=== PATIENT | male | born 1995 | race Caucasian/White ===

== ENCOUNTER 2017-09-25 10:00 | Emergency (ER) | payer BC ==
--- NOTE | 2017-09-25 11:54 | RAD ---
HISTORY: Left-sided testicular pain COMPARISONS: None TECHNIQUE: Multiple transverse and longitudinal ultrasound images were obtained of the scrotum, using grayscale, color Doppler, and spectral Doppler imaging. FINDINGS: RIGHT: RIGHT TESTICLE: The right testicle measures 4 x 2 x 2.8 cm. The right testicle is homogeneous in echotexture, without testicular parenchymal mass. Normal arterial and venous waveforms are identified within the right testicle on spectral Doppler imaging. RIGHT EPIDIDYMIS: The right epididymis measures 0.8 cm at the head. RIGHT SCROTUM: There is trace right hydrocele. There is no varicocele. LEFT: LEFT TESTICLE: The left testicle measures 4.1 x 2.4 x 3 cm. The left testicle is homogeneous in echotexture, without testicular parenchymal mass. Normal arterial and venous waveforms are identified within the left testicle on spectral Doppler imaging. LEFT EPIDIDYMIS: The left epididymis measures 0.9 cm at the head. LEFT SCROTUM: There is a trace left varicocele. There is no hydrocele. OTHER: None IMPRESSION: 1. NO TESTICULAR PARENCHYMAL MASS. 2. NO SONOGRAPHIC FEATURES OF TORSION. PLEASE NOTE THAT PARTIAL OR INTERMITTENT TORSION MAY BE SONOGRAPHICALLY NORMAL.
[2017-09-25 12:33] VITALS: BP 124/87
--- NOTE | 2017-10-10 08:59 | UC ---
Cassidy Sue Thomas, scribed for Sophia Fontenot DO on 09/25/17 at 1022 . Complaint Male HPI - HPI Summary HPI Summary: The pt is a 22 y/o M presenting to E c/o left testicle pain that began one day ago. The pain began yesterday when he was lying down after work. The pain is described as throbbing. The pain is constant. The pain radiates to his LLQ. The pt rates the pain 3/10. The pain is aggravated by lying on his stomach. It is alleviated by nothing. The patient has treated the pain with nothing AGENT SPA DESK. Pt additionally c/o a bump to his testicle that he first noticed a few weeks ago that has now resolved. Pt denies testicular swelling and rectal pain. Pt also denies fever, dysuria, hematuria, urinary symptoms, F/S/C, N/V, any other pains. - History of Current Complaint Chief Complaint: UCGU Stated Complaint: TESTICULAR PAIN Time Seen by Provider: 09/25/17 10:14 Hx Obtained From: Patient Onset/Duration: Lasting Days - 1, Still Present Severity Currently: Mild Pain Intensity: 3 Pain Scale Used: 0-10 Numeric Location: Testicle - L Aggravating Factor(s): Other - Lying on stomach Alleviating Factor(s): Nothing Associated Signs And Symptoms: Negative: Fever, Hematuria, Dysuria - Allergies/Home Medications Allergies/Adverse Reactions: Allergies Allergy/AdvReac Type Severity Reaction Status Date / Time Amoxicillin [From Augmentin] AdvReac See Comment Verified 09/25/17 10:08 Clavulanic Acid AdvReac See Comment Verified 09/25/17 10:08 [From Augmentin] Home Medications: Home Medications NK [No Home Medications Reported] 09/25/17 [History Confirmed 09/25/17] PMH/Surg Hx/FS Hx/Imm Hx Previously Healthy: No - NEGATIVE PMHX: HTN Respiratory History: Asthma - Surgical History Surgical History: Yes Surgery Procedure, Year, and Place: tubes in ears - Family History Known Family History: Positive: Cardiac Disease - Social History Alcohol Use: Rare Substance Use Type: None Smoking Status (MU): Current Some Day Smoker Type: Cigars Amount Used/How Often: 1-2 monthly - Immunization History Most Recent Influenza Vaccination: 09/02 Review of Systems Constitutional: Other - NEGATIVE: fever Genitourinary: Other - Left testicular pain (onset yesterday) Is Patient Immunocompromised?: No All Other Systems Reviewed And Are Negative: Yes Physical Exam Triage Information Reviewed: Yes Appearance: Well-Appearing, No Pain Distress, Well-Nourished Vital Signs: Initial Vital Signs Temp 98.5 F 09/25/17 10:05 Pulse 100 09/25/17 10:05 Resp 18 09/25/17 10:05 BP 135/82 09/25/17 10:05 Pulse Ox 100 09/25/17 10:05 Vital Signs Reviewed: Yes Eyes: Positive: Conjunctiva Clear. Negative: Discharge ENT: Positive: Hearing grossly normal. Negative: Muffled voice Neck exam: Normal Neck: Positive: Supple Respiratory: Positive: Lungs clear, Normal breath sounds, No respiratory distress, No accessory muscle use Cardiovascular: Positive: RRR, No Murmur Abdomen Description: Positive: Nontender, Soft Bowel Sounds: Positive: Present Musculoskeletal Exam: Normal Neurological: Positive: Alert, Muscle Tone Normal Psychological: Positive: Age Appropriate Behavior, Other: - Anxious Skin Exam: Normal Skin: Positive: Other - Warm, dry, normal color - Additional Comments Testicular: The left testicle is tender to palpation. There is no swelling, calor or redness. There is no palpable mass or hernia. Penis is grossly normal with no lesion or discharge. Diagnostics - Laboratory Diagnostic Studies Completed/Ordered: US Testicular. Interpreted by radiologist. Impression: 1. NO TESTICULAR PARENCHYMAL MASS. 2. NO SONOGRAPHIC FEATURES OF TORSION. PLEASE NOTE THAT PARTIAL OR INTERMITTENT TORSION. MAY BE SONOGRAPHICALLY NORMAL. ED physician has reviewed this report and agrees. Complaint Male Course/Dx - Course Course Of Treatment: High blood pressure noted. Medications reviewed this visit. The patient has been encouraged to stop smoking. - Differential Dx/Diagnosis Provider Diagnoses: Testicular pain, elevated blood pressure without a diagnosis of hypertension. Discharge - Discharge Plan Condition: Stable Disposition: HOME Patient Education Materials: Testicle Pain (ED) Referrals: No Primary Care Phys,NOPCP [Primary Care Provider] - Fabien Blue MD [Medical Doctor] - (FOLLOW UP IN 1-5 DAYS) Additional Instructions: Your blood pressure was elevated at this visit. That does not mean you have hypertension, it is probably due to your current condition. Please follow up with your primary care provider. FOLLOW-UP CARE: You should establish with a private physician for follow-up care. If you are unable to get a timely appointment, or if you are worsening, call us or return for re-evaluation. An additional resource available to assist in finding the appropriate physician for your health care needs is the [facility]erral Center. You may contact them by calling [phone]. The documentation as recorded by the Cassidy reynoso Thomas accurately reflects the service I personally performed and the decisions made by me, Sophia Fontenot DO.
== END 2017-09-25 13:09 | disposition home or self-care (01) ==
LOC: UCEAST 10:00
DX: N50.812 Left testicular pain (principal); R03.0 Elevated blood-pressure reading, without diagnosis of hypertension; Z88.1 Allergy status to other antibiotic agents; J45.909 Unspecified asthma, uncomplicated; Z72.0 Tobacco use
CPT/HCPCS: 76870; 81003; 87491; 87591; 99212; G0463

== ENCOUNTER 2018-03-11 09:22 | Emergency (ER) | payer BC ==
[2018-03-11 10:05] VITALS: BP 136/80
--- NOTE | 2018-03-11 10:44 | UC ---
General HPI - HPI Summary HPI Summary: 22 y/o male presents to the urgent care requesting HIV base line testing. Pt report he is starting a new relationship and would like to know his HIV status. He did the test 4 years ago and it was negative. Pt deneis fever, fatigue, URI, weakness, recent weight loss, SOB, chest pain, N/C/D or viral syndrome. - History of Current Complaint Chief Complaint: UCSTDScreening Stated Complaint: WANTS HIV TESTING Time Seen by Provider: 03/11/18 10:42 Hx Obtained From: Patient Onset/Duration: Other - Pt has been healthy Current Severity: None Pain Intensity: 0 - Allergy/Home Medications Allergies/Adverse Reactions: Allergies Allergy/AdvReac Type Severity Reaction Status Date / Time amoxicillin [From Augmentin] Allergy See Comment Verified 03/11/18 10:05 clavulanic acid Allergy See Comment Verified 03/11/18 10:05 [From Augmentin] Home Medications: Home Medications Fluticasone DISKUS 100 MCG(NF) [Flovent Diskus 100 MCG(NF)] 1 puff INH BID 03/11 [History Confirmed 03/11/18] PMH/Surg Hx/FS Hx/Imm Hx Previously Healthy: Yes Respiratory History: Asthma - 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 - Surgical History Surgical History: Yes Surgery Procedure, Year, and Place: tubes in ears - Family History Known Family History: Positive: Cardiac Disease, Diabetes - Social History Occupation: Employed Full-time Lives: With Family Alcohol Use: Occasionally Substance Use Type: None Smoking Status (MU): Current Some Day Smoker Type: Cigars Amount Used/How Often: 1-2 monthly - Immunization History Most Recent Influenza Vaccination: 09/02 Vaccination Up to Date: Yes Review of Systems Constitutional: Negative Skin: Negative Eyes: Negative ENT: Negative Respiratory: Negative Cardiovascular: Negative Gastrointestinal: Negative Genitourinary: Negative Motor: Negative Neurovascular: Negative Musculoskeletal: Arthralgia Neurological: Negative Psychological: Negative Is Patient Immunocompromised?: No All Other Systems Reviewed And Are Negative: Yes Physical Exam - Summary Physical Exam Summary: Vital Signs Reviewed: Yes General: well developed, well nourished male sitting in the examining table w/o any apparent distress Eyes: Positive: Conjunctiva Clear - PERRLA, EOMI, fundi grossly normal ENT: Positive: Normal ENT inspection, Hearing grossly normal, Pharynx mild erythema, no exudate, Nose: normal mucosa, TMs normal. Negative: Tonsillar swelling, Tonsillar exudate Neck: Positive: Supple, Nontender, No Lymphadenopathy Respiratory: no orthopnea or dyspnea. Able to speak in full sentences, no retractions or accessory muscle use, no tripod position, stridor, or head bobbing. CTA bilaterally, no wheezing, no rhonchi, no rales, no crackles. Cardiovascular: Positive: RRR, No Murmur, Pulses Normal, Brisk Capillary Refill Abdomen Description: Positive: Nontender, No Organomegaly, Soft. Negative: CVA Tenderness (R), CVA Tenderness (L) Bowel Sounds: Positive: Present Musculoskeletal Exam: Normal Musculoskeletal: Positive: Strength Intact, ROM Intact, No Edema Neurological Exam: Normal Psychological Exam: Normal Skin Exam: Normal Triage Information Reviewed: Yes Vital Signs: Initial Vital Signs Temp 99.0 F 03/11/18 10:01 Pulse 98 03/11/18 10:01 Resp 18 03/11/18 10:01 BP 136/80 03/11/18 10:01 Pulse Ox 97 03/11/18 10:01 Course/Dx - Course Course Of Treatment: 22 y/o male presents to the urgent care requesting HIV base line testing. Pt report he is starting a new relationship and would like to know his HIV status. He did the test 4 years ago and it was negative. Pt deneis fever, fatigue, URI, weakness, recent weight loss, SOB, chest pain, N/C/ D or viral syndrome. Hx obtained. PE:WNL. HIV 1&2 ordered. Samples sent to lab. Pt will be notified of blood results. - Differential Dx - Multi-Symptom Differential Diagnoses: Other - STD's screening, HIV screening, Provider Diagnoses: 1- HIV screening Discharge - Sign-Out/Discharge Documenting (check all that apply): Discharge/Admit/Transfer - D/C home - Discharge Plan Condition: Stable Disposition: HOME Patient Education Materials: HIV Transmission (ED) Referrals: Ridge Hubbard MD [Primary Care Provider] - If Needed Additional Instructions: 1- HIV 1&2 testing was sent to the lab. You will be notified of the results. 2- In case if any abnormality please f/u w/ your PCP for further management - Billing Disposition and Condition Condition: STABLE Disposition: HOME
== END 2018-03-11 11:10 | disposition home or self-care (01) ==
LOC: UCEAST 09:22
DX: Z11.4 Encounter for screening for human immunodeficiency virus [HIV] (principal); J45.990 Exercise induced bronchospasm; Z88.1 Allergy status to other antibiotic agents; Z88.0 Allergy status to penicillin; Z72.0 Tobacco use
CPT/HCPCS: 36415; 86703; 99211; G0463

== ENCOUNTER 2018-11-18 08:08 | Emergency (ER) | payer BC ==
[2018-11-18 08:23] VITALS: BP 153/74
--- NOTE | 2018-11-18 09:14 | UC ---
Complaint Male HPI - HPI Summary HPI Summary: About one week of left flank pain that radiates to his left groin. States he has some intermittent testicular discomfort but is somewhat unclear about this. Denies any trauma. No urinary symptoms. No fever. No nausea. No history of kidney stones. - History of Current Complaint Chief Complaint: UCBackPain Stated Complaint: LOWER BACK PAIN Time Seen by Provider: 11/18/18 08:46 Hx Obtained From: Patient Onset/Duration: Gradual Onset, Lasting Days, Still Present Timing: Intermittent Severity Initially: Moderate Severity Currently: Moderate Pain Intensity: 2 Pain Scale Used: 0-10 Numeric Location: Flank - LEFT Radiates to: LEFT GROIN Character: Sharp Aggravating Factor(s): Other - MOVEMENT Associated Signs And Symptoms: Positive: Back Pain. Negative: Fever, Hematuria , Dysuria, Constipation, Blood in Stool, Nausea, Penile Swelling, Penile Discharge - Allergies/Home Medications Allergies/Adverse Reactions: Allergies Allergy/AdvReac Type Severity Reaction Status Date / Time amoxicillin [From Augmentin] Allergy See Comment Verified 03/11/18 10:05 clavulanic acid Allergy See Comment Verified 03/11/18 10:05 [From Augmentin] Home Medications: Home Medications Albuterol HFA INHALER* [Ventolin HFA Inhaler*] 2 puff PO PRN 11/18/18 [History] PMH/Surg Hx/FS Hx/Imm Hx Respiratory History: Asthma - Surgical History Surgical History: Yes Surgery Procedure, Year, and Place: tubes in ears - Family History Known Family History: Positive: Cardiac Disease, Diabetes - Social History Alcohol Use: Occasionally Substance Use Type: None Smoking Status (MU): Current Some Day Smoker Type: Cigars Amount Used/How Often: 1-2 monthly - Immunization History Most Recent Influenza Vaccination: 09/02 Vaccination Up to Date: Yes Review of Systems All Other Systems Reviewed And Are Negative: Yes Constitutional: Positive: Negative Respiratory: Positive: Negative Cardiovascular: Positive: Negative Gastrointestinal: Positive: Negative Genitourinary: Positive: Other - LEFT FLANK AND GROIN PAIN. Negative: Dysuria, Hematuria, Frequency, Urgency Physical Exam Triage Information Reviewed: Yes Appearance: Well-Appearing, No Pain Distress, Well-Nourished Vital Signs: Initial Vital Signs Temp 98.1 F 11/18/18 08:17 Pulse 98 11/18/18 08:17 Resp 16 11/18/18 08:17 BP 153/74 11/18/18 08:17 Pulse Ox 100 11/18/18 08:17 Vital Signs Reviewed: Yes Eyes: Positive: Conjunctiva Clear ENT: Positive: Hearing grossly normal Neck: Positive: Supple Respiratory: Positive: No respiratory distress, No accessory muscle use Cardiovascular: Positive: Pulses Normal Abdomen Description: Positive: Nontender, Soft. Negative: CVA Tenderness (R), CVA Tenderness (L), Distended, Guarding Bowel Sounds: Positive: Present Male Genital Exam: Positive: Normal Genitalia - CIRCUMSIZED, No Hernia. Negative: Epididymal Tenderness, Inguinal Tenderness, Scrotum Tenderness (R), Scrotum Tenderness (L), Testicular Tenderness (R), Testicular Tenderness (L), Urethral Discharge Musculoskeletal: Positive: No Edema Neurological: Positive: Alert Psychological: Positive: Age Appropriate Behavior Skin: Negative: Rashes Diagnostics - Radiology CT ABD/PELVIS W/O CONTRAST Radiology Interpretation Completed By: Radiologist Summary of Radiographic Findings: STOOL THROUGHOUT THE COLON BUT OTHERWISE UNREMARKABLE. Complaint Male Course/Dx - Course Course Of Treatment: PT UNABLE TO LEAVE A URINE SAMPLE. STATES HE CAN NOT VOID ANYWHERE OTHER THAN HOME. BASED ON SYMPTOMS CT SCAN WAS OBTAINED WHICH WAS NEGATIVE FOR STONE. HE DID HAVE A LARGE AMOUNT OF STOOL THROUGHOUT HIS COLON. PATIENT DENIES FEELING CONSTIPATED HOWEVER HAVE ENCOURAGED THE USE OF A STOOL SOFTENER TO HELP PROMOTE REGULAR BOWEL MOVEMENTS TO SEE IF THIS HELPS HIS SYMPTOMS. IF HE DOES NOT IMPROVE HE'LL FOLLOW-UP WITH HIS PCP. IF HIS SYMPTOMS WORSEN HE WILL GO TO THE ED. HE WAS GIVEN A LABELED STERILE URINE CUP SUCH THAT HE CAN BRING A SAMPLE WITH HIM SHOULD HE SEEK REEVALUATION. - Differential Dx/Diagnosis Provider Diagnosis: Left flank pain Discharge - Sign-Out/Discharge Documenting (check all that apply): Patient Departure All imaging exams completed and their final reports reviewed: Yes - Discharge Plan Condition: Stable Disposition: HOME Patient Education Materials: Constipation (ED), Flank Pain (ED) Referrals: Ridge Hubbard MD [Primary Care Provider] - 1 Week Additional Instructions: YOUR CT SCAN TODAY WAS UNREMARKABLE EXCEPT FOR A LARGE AMOUNT OF STOOL IN THE COLON. I WOULD RECOMMEND YOU GET AN [id number] STOOL SOFTENER SUCH COLACE AND TAKE THIS DAILY TO ENCOURAGE REGULAR BOWEL MOVEMENTS. STAY WELL HYDRATED. IF YOUR SYMPTOMS PERSIST BE SURE TO FOLLOW-UP WITH YOUR PCP. GO TO THE ER WITHOUT FAIL IF YOU DEVELOP WORSENING PAIN, FEVER, NAUSEA OR ANY OTHER CONCERNING SYMPTOMS. YOU HAVE BEEN GIVEN A STERILE URINE CUP TO TAKE HOME WITH YOU. SHOULD YOUR SYMPTOMS NOT IMPROVE AND YOU NEED TO SEEK REEVALUATION I WOULD RECOMMEND GETTING A URINE SAMPLE AT HOME AND BRINGING IT WITH YOU TO YOUR EVALUATION. IDEALLY YOU WOULD BE SEEN WITHIN ONE HOUR OF VOIDING. IF YOU CANNOT MAKE IT IN THIS TIME BE SURE TO REFRIGERATE THE SAMPLE. - Billing Disposition and Condition Condition: STABLE Disposition: Home
== END 2018-11-18 10:00 | disposition home or self-care (01) ==
LOC: UCEAST 08:08
DX: R10.9 Unspecified abdominal pain (principal); Z88.0 Allergy status to penicillin; A88.8 Other specified viral infections of central nervous system; F17.210 Nicotine dependence, cigarettes, uncomplicated
CPT/HCPCS: 74176; 99211; G0463

== ENCOUNTER 2018-11-27 13:54 | Emergency (ER) | payer BC ==
--- NOTE | 2018-11-27 15:55 | ED ---
GI/ HPI - HPI Summary HPI Summary: Patient is a 23 y/o M presenting to ED with complaints of constipation, left flank pain, lower abdominal pain down to testicles. He notes that testicular pain is no longer present. Pain onset a week ago, patient states that he had an abd/pel CT scan, large amount of stool was noted in the colon. Patient was told to take stool softener, which he has been doing. Despite this, he states that has not had a bowl movement in 2-3 days. He notes an episode of vomiting today as well. Pain is intermittent and crampy. No dysuria, no hematuria, no testicular pain. No other PMHx. On triage, pain is rated 2/10, nothing is noted to aggravate/alleviate Sx. Home medications, allergies, and nurse's note are reviewed. - History of Current Complaint Chief Complaint: EDAbdPain Time Seen by Provider: 11/27/18 15:48 Stated Complaint: ABD PIAN Hx Obtained From: Patient Onset/Duration: Started Days Ago - no bowel movement in past 2-3 days, Started Weeks Ago - pain onset a week ago, Still Present Timing: Intermittent, Lasting Days - no bowel movement in past 2-3 days, Lasting Weeks - pain onset a week ago Current Severity: Mild - 2/10 Pain Intensity: 2 Location of Pain: Flank - left, Other - lower abdomen Additional Locations for Males: Testicles Pain Characteristics: Cramping Associated Signs and Symptoms: Positive: Vomiting, Constipation, Flank Pain - left, Abdominal Pain, Other: - testicular pain, since resolved. Negative: Back Pain, Hematuria, Dysuria Aggravating Factor(s): Nothing Alleviating Factor(s): Nothing - Allergy/Home Medications Allergies/Adverse Reactions: Allergies Allergy/AdvReac Type Severity Reaction Status Date / Time amoxicillin [From Augmentin] Allergy See Comment Verified 03/11/18 10:05 clavulanic acid Allergy See Comment Verified 03/11/18 10:05 [From Augmentin] PMH/Surg Hx/FS Hx/Imm Hx Endocrine/Hematology History: Denies: Hx Diabetes, Hx Thyroid Disease Cardiovascular History: Denies: Hx Hypertension Respiratory History: Reports: Hx Asthma - as a child Denies: Hx Chronic Obstructive Pulmonary Disease (COPD) GI History: Denies: Hx Ulcer - Surgical History Surgery Procedure, Year, and Place: tubes in ears Infectious Disease History: No Infectious Disease History: Denies: Hx Clostridium Difficile, Hx Hepatitis, Hx Human Immunodeficiency Virus (HIV), Hx of Known/Suspected MRSA, Hx Shingles, Hx Tuberculosis, Hx Known/ Suspected VRE, Hx Known/Suspected VRSA, History Other Infectious Disease, Traveled Outside the [place] in Last 30 Days - Family History Known Family History: Positive: Cardiac Disease, Diabetes - Social History Alcohol Use: Occasionally Substance Use Type: Reports: None Smoking Status (MU): Current Some Day Smoker Type: Cigars Amount Used/How Often: 1-2 monthly Review of Systems Positive: Abdominal Pain - lower abd , Vomiting Positive: flank pain - left , pain - POSITIVE - SINCE RESOLVED TESTICULAR PAIN . Negative: dysuria, hematuria All Other Systems Reviewed And Are Negative: Yes Physical Exam - Summary Physical Exam Summary: Appearance: Well appearing, no pain distress Skin: warm, dry, reflects adequate perfusion Head/face: normal Eyes: EOMI, RON; exotropia of left eye ENT: mucous membranes moist Neck: supple, non-tender Respiratory: CTA, breath sounds present Cardiovascular: RRR, pulses symmetrical Abdomen: non-tender, soft Bowel Sounds: present Musculoskeletal: normal, strength/ROM intact Neuro: normal, sensory motor intact, A&Ox3 Triage Information Reviewed: Yes Vital Signs On Initial Exam: Initial Vitals Temp Pulse Resp BP Pulse Ox 97.7 F 90 18 134/80 97 11/27/18 14:07 11/27/18 14:07 11/27/18 14:07 11/27/18 14:07 11/27/18 14:07 Vital Signs Reviewed: Yes Diagnostics - Vital Signs Vital Signs Temp Pulse Resp BP Pulse Ox 11/27/18 14:07 97.7 F 90 18 134/80 97 - Laboratory Lab Statement: Any lab studies that have been ordered have been reviewed, and results considered in the medical decision making process. - Radiology abdomen x-ray Radiology Interpretation Completed By: Radiologist Summary of Radiographic Findings: IMPRESSION: #. Negative for bowel obstruction. This report was reviewed by ED physician. GIGU Course/Dx - Course Course Of Treatment: Nurse's notes reviewed. Patient had recent CT scan consistent with constipation. KUB here today shows stool as well. There is no obstruction. He has no pain on exam. Treat symptomatically for constipation. - Diagnoses Differential Diagnoses - Male: Constipation, Bowel Obstruction Provider Diagnoses: Constipation, Abdominal cramping Discharge - Sign-Out/Discharge Documenting (check all that apply): Patient Departure - DISCHARGE - Discharge Plan Condition: Stable Disposition: HOME Prescriptions: Bisacodyl SUPP* [Dulcolax Supp*] 10 mg WI DAILY PRN #5 supp PRN Reason: Constipation Hyoscyamine Sulfate [Levsin/Sl] 0.125 mg SL Q6H PRN #20 sub PRN Reason: abdominal cramping Polyethylene Glycol 3350 BTL* [Miralax] 17 g PO TID PRN #1 btl PRN Reason: Constipation Patient Education Materials: Constipation (ED), High Fiber Diet (ED) Referrals: Ridge Hubbard MD [Primary Care Provider] - Additional Instructions: Increase liquids, natural fruit juices may help. Return with fever, increased abdominal pain, blood in the stool, worse, new symptoms or other concerns. Follow-up with your family doctor on Friday. - Billing Disposition and Condition Condition: STABLE Disposition: Home - Attestation Statements Document Initiated by Gege: Yes Documenting Scribe: JJ ELIAS Provider For Whom Gege is Documenting (Include Credential): HALLIE PARRISH MD Scribe Attestation: JJ Sue , scribed for HALLIE PARRISH MD on 11/27/18 at 1804. Scribe Documentation Reviewed: Yes Provider Attestation: The documentation as recorded by the JJ reynoso accurately reflects the service I personally performed and the decisions made by me, HALLIE PARRISH MD Status of Scribe Document: Viewed
[2018-11-27 17:13] VITALS: BP 126/72
== END 2018-11-27 18:30 | disposition home or self-care (01) ==
LOC: ED 13:54
DX: K59.00 Constipation, unspecified (principal); R10.30 Lower abdominal pain, unspecified; Z88.1 Allergy status to other antibiotic agents; Z88.0 Allergy status to penicillin; Z72.0 Tobacco use
CPT/HCPCS: 74018; 99282